=== PATIENT | male | born 1960 | race Caucasian/White ===

== ENCOUNTER 2022-02-26 19:09 | Emergency (ER) | payer MEDICAID, OTHER ==
[~2022-02-26] VITALS: Ht 172.7 cm; Wt 81.8 kg
[2022-02-26] MEDS ORDERED: FLUORESCEIN SODIUM 1 MG STRIP OU ONE (19:30)
[2022-02-26] MEDS ORDERED: PROPARACAINE HCL 0.5% 15 ML OPHTHALMIC SOLUTION ONE (19:35)
[2022-02-26] MEDS ORDERED: KETOROLAC TROMETHAMINE 30 MG/ML VIAL IM ONE (22:15)
[2022-02-26 22:47] VITALS: BP 145/75
== END 2022-02-26 22:55 | disposition home or self-care (01) ==
LOC: EMS 19:17
DX: H57.13 Ocular pain, bilateral (principal)
CPT/HCPCS: 99283; 96372; J1885